=== PATIENT | male | born 1965 | race Caucasian/White ===

== ENCOUNTER 2017-08-23 02:04 | Emergency (ER) | payer MEDICARE, OTHER ==
[~2017-08-23] VITALS: Ht 175.3 cm; Wt 127.0 kg
[~2017-08-23 02:04] MED LIST: ALBU90OI61 INH; Albuterol17 G1 INH; Ativan0.5 MG PO; BENTYL10 MG PO; BRIM.15SO BOTHEYES; BUPR100 PO; BUPR150T2 PO; CEPH500 PO; CLON1 PO; CYCL10 PO; DIVA500EC PO; DOCU100 PO; DOXY100T53 PO; ERGO50000 PO; ESCI10 PO; ESZO3 PO; FURO20 PO; FURO40 PO; HYDR-86 PO; IBUP600 PO; LATA.005SO BOTHEYES; LEVSOD50 PO; LOPE2C PO; LOSA50 PO; Metoprolol-Hct1 EAC1 PO; Minipress1 MG PO; Monodox100 MG PO; NAPR550 PO; Norco 7.5-3251 EACH PO; OMEP20ER PO; POTA20PAC PO; POTCHL20ER PO; PROBIOTIC1 EAC1 PO; PROC10 PO; Pepcid40 MG PO; Percocet 5-3251 EACH PO; QUET300 PO; SYNTHROID25 MCG PO; Synthroid25 MCG PO; TIMO.5OPSO BOTHEYES; TOPI100 PO; Toprol Xl25 MG PO; VICODIN ES 7.51 EACH PO; VITAMIN D350000 UNIT PO; ZALE10 PO; [UNRECOGNIZED DRUG - REMARK]
[2017-08-23] MEDS ORDERED: Xalatan2.5 ML (02:14)
[2017-08-23] MEDS ORDERED: ALBU90OI61 INH (02:14)
[2017-08-23] MEDS ORDERED: LISI20 PO (02:15)
[2017-08-23] MEDS ORDERED: Combigan Eye Dro5 ML (02:15)
[2017-08-23 04:13] LABS: Influenza A Negative (NEGATIVE); Influenza B Negative (NEGATIVE)
[2017-08-23] MEDS ORDERED: Pseudoephedrine30 MG PO (04:26)
== END 2017-08-23 04:57 | disposition home or self-care (01) ==
LOC: ER 02:04
PROVIDERS: Emergency Medicine
DX: J06.9 Acute upper respiratory infection, unspecified (principal); Z88.0 Allergy status to penicillin; Z88.8 Allergy status to other drugs, medicaments and biological substances; Z79.899 Other long term (current) drug therapy; F32.9 Major depressive disorder, single episode, unspecified; Z87.891 Personal history of nicotine dependence
CPT/HCPCS: 71046; 87804; 94640; 96361; 96374; 99283; J1885; J7030

== ENCOUNTER 2019-06-27 11:46 | Observation (INO) | payer MEDICARE ==
[~2019-06-27] VITALS: Ht 175.3 cm; Wt 128.8 kg
[~2019-06-27 11:46] MED LIST changes: +Pseudoephedrine30 MG PO
[2019-06-27 12:10] LABS: Calcium, Ionized (POC) 1.15 mmol/L (1.10-1.46); Chloride (POC) 101 mmol/L (98-108); Creatinine (POC) 0.9 mg/dL (0.8-1.3); Glucose (ISTAT POC) 150 mg/dL (70-99); Potassium (POC) 3.1 mmol/L (3.5-5.5); Sodium (POC) 140 mmol/L (135-148); Total CO2 (POC) 28 mmol/L (21-32)
[2019-06-27 12:17] LABS: BASOPHILS ABSOLUTE AUTO 0.05 K/mm3 (0.00-0.23); BASOPHILS PERCENT AUTO 0 % (0-2); EOSINOPHILS ABSOLUTE AUTO 0.09 K/mm3 (0.00-0.68); EOSINOPHILS PERCENT AUTO 1 % (0-6); Hematocrit 45.8 % (37.0-53.0); Hemoglobin 15.4 g/dL (13.5-17.5); IMMATURE GRAN ABSOLUTE AUTO 0.07 K/mm3 (0.00-0.10); IMMATURE GRAN PERCENT AUTO 1 % (0-1); LYMPHOCYTES ABSOLUTE AUTO 4.86 K/mm3 (0.84-5.20); LYMPHOCYTES PERCENT AUTO 32 % (21-46); MONOCYTES ABSOLUTE AUTO 0.97 K/mm3 (0.16-1.47); MONOCYTES PERCENT AUTO 6 % (4-13); Mean Corpuscular HGB 28.7 pg (26.0-34.0); Mean Corpuscular HGB Conc 33.6 g/dL (31.5-36.5); Mean Corpuscular Volume 85 fL (80-100); NEUTROPHILS ABSOLUTE AUTO 9.41 K/mm3 (1.96-9.15); NEUTROPHILS PERCENT AUTO 61 % (41-73); Platelet Count 328 K/mm3 (150-400); RDW Coefficient Variation 12.7 % (11.7-14.2); RDW Standard Deviation 39.3 fL (35.1-46.3); Red Blood Cell Count 5.36 M/mm3 (4.30-5.90); White Blood Cell Count 15.45 K/mm3 (4.00-11.30)
[2019-06-27 12:33] LABS: Alanine Aminotransfer (ALT/SGP 23 U/L (12-78); Albumin, Blood 3.9 g/dL (3.4-5.0); Alk Phos 98 U/L (50-136); Anion Gap 9 mmol/L (6-16); Aspartate Aminotrans (AST/SGOT 21 U/L (12-37); Bilirubin, Total 0.5 mg/dL (0.1-1.0); Blood Urea Nitrogen 5 mg/dL (8-24); Bun/Creatinine Ratio 6.2 (12.0-20.0); CO2, Blood 25 mmol/L (21-32); Calcium, Blood 9.6 mg/dL (8.5-10.1); Chloride, Blood 106 mmol/L (98-108); Creatinine, Blood 0.81 mg/dL (0.60-1.20); Globulin, Blood 4.1 g/dL (2.2-4.0); Glomerular Filtration Rate >60 (60-); Glucose, Blood 137 mg/dL (70-99); Sodium, Blood 140 mmol/L (136-145); Troponin I <0.015 ng/mL (0.000-0.040)
[2019-06-27] MEDS ORDERED: Xalatan2.5 ML BOTHEYES (13:17)
[2019-06-27] MEDS ORDERED: Combigan Eye Dro5 ML BOTHEYES (13:18)
[2019-06-27] MEDS ORDERED: DORZOLAMIDE 2%10 ML BOTHEYES (13:18)
[2019-06-27] MEDS ORDERED: RHOPRESSA2.5 ML BOTHEYES (13:19)
[2019-06-27] MEDS ORDERED: ROPINIROLE HCL0.5 MG PO (13:55)
[2019-06-27] MEDS ORDERED: PROPRANOLOL ER PO (13:55)
[2019-06-27] MEDS ORDERED: Aspir 8181 MG PO (13:55)
[2019-06-27] MEDS ORDERED: AMLODIPINE BESY10 MG PO (13:55)
[2019-06-27] MEDS ORDERED: ZESTRIL40 M1 PO (13:55)
[2019-06-27] MEDS ORDERED: POTCHL20ER PO (13:56)
[2019-06-27] MEDS ORDERED: Flonase 0.05% N16 GM (13:57)
[2019-06-27 14:03] LABS: Acetaminophen, Random <2.0 ug/mL (10.0-30.0); Salicylate 1.8 mg/dL (2.8-20.0)
[2019-06-27 14:17] LABS: Magnesium, Blood 1.6 mg/dL (1.6-2.4)
[2019-06-27 15:38] LABS: U Amphetamine Screen Not Detected; U Barbituate Screen Not Detected; U Benzodiazapine Screen Not Detected; U Buprenorphine Screen Not Detected; U Cannabinoids Screen DETECTED; U Cocaine Screen Not Detected; U Methadone Screen Not Detected; U Methamphetamine Screen Not Detected; U Opiates Screen DETECTED; U Oxycodone Screen Not Detected; U Phencyclidine Screen Not Detected; U Propoxyphene Screen Not Detected
--- NOTE | 2019-06-27 15:52 | NUR ---
REPORT RECIEVED FROM ED RN. PER REPORT PT TO BE ADMITTED TO MEDICAL FLOOR FOR OBSERVATION. PT ADMITTED WITH CHEST PAIN, NEGATIVE TROPONIN HTN. PAIN MEDS GIVEN IN THE ED. PER REPORT PT STABLE ALERT, ORIENTED AND INDEPENDENT.
--- NOTE | 2019-06-27 18:45 | NUR ---
SHIFT SUMMARY- PT ALERT AND ORIENTED ADMITTED THROUGH THE ED. WHEN PT ARRIVED HE GOT UP TO GO STRAIGHT TO THE BATHROOM. AFTER RETURNING TO THE BED PT C/O 9/10 CHEST PAIN BURNING PRESSURE WITH A STABBING PAIN GOING "THROUGH TO HIS BACK" PT STATES SHARP PAIN MORE EVIDENT WITH A DEEP BREATH. TROPONINS NEGATIVE, BP AND HR ELEVATED, TELE SHOWS NSR WITH PVC'S. CALLED ABOUT PAIN MEDICINE TO MANAGE, PT HAS A NITRO PATCH IN PLACE ON THE LEFT CHEST. PT DENIES SOB AT TIME OF ADMIT. RECIEVED ORDER FOR IV FENTANYL HOWEVER DISCOVERED PT HAD IV TORADOL NOT PO TRAMADOL ORDERED, CALLED DR BAILEY AND FENTANYL DC'D. TORADOL GIVEMN.
[2019-06-27 20:02] LABS: Source, Urine Clean Catch
[2019-06-27 20:08] LABS: Appearance, Urine Clear (Clear); Bilirubin, Urine Neg (Neg); Blood, Urine Neg (Neg); Color, Urine Yellow (P-Yellow); Glucose Qualitative, Urine Neg (Neg); Ketones, Urine Neg (Neg); Leukocyte Esterase, Urine Neg (Neg); Nitrite, Urine Neg (Neg); Protein, Urine Neg (Neg); Specific Gravity, Urine 1.015 (1.003-1.022); Urobilinogen, Urine NORM (Normal)
[2019-06-27 20:23] LABS: U Amphetamine Screen Not Detected; U Barbituate Screen Not Detected; U Benzodiazapine Screen Not Detected; U Buprenorphine Screen Not Detected; U Cannabinoids Screen DETECTED; U Cocaine Screen Not Detected; U Methadone Screen Not Detected; U Methamphetamine Screen Not Detected; U Opiates Screen DETECTED; U Oxycodone Screen Not Detected; U Phencyclidine Screen Not Detected; U Propoxyphene Screen Not Detected
[2019-06-28 00:34] LABS: BASOPHILS ABSOLUTE AUTO 0.03 K/mm3 (0.00-0.23); BASOPHILS PERCENT AUTO 0 % (0-2); EOSINOPHILS ABSOLUTE AUTO 0.08 K/mm3 (0.00-0.68); EOSINOPHILS PERCENT AUTO 1 % (0-6); Hematocrit 39.7 % (37.0-53.0); Hemoglobin 13.3 g/dL (13.5-17.5); IMMATURE GRAN ABSOLUTE AUTO 0.03 K/mm3 (0.00-0.10); IMMATURE GRAN PERCENT AUTO 0 % (0-1); LYMPHOCYTES ABSOLUTE AUTO 2.29 K/mm3 (0.84-5.20); LYMPHOCYTES PERCENT AUTO 26 % (21-46); MONOCYTES ABSOLUTE AUTO 0.44 K/mm3 (0.16-1.47); MONOCYTES PERCENT AUTO 5 % (4-13); Mean Corpuscular HGB 28.5 pg (26.0-34.0); Mean Corpuscular HGB Conc 33.5 g/dL (31.5-36.5); Mean Corpuscular Volume 85 fL (80-100); Mean Platelet Volume 9.9 fL (9.1-12.4); NEUTROPHILS ABSOLUTE AUTO 5.82 K/mm3 (1.96-9.15); NEUTROPHILS PERCENT AUTO 67 % (41-73); Platelet Count 227 K/mm3 (150-400); RDW Coefficient Variation 12.9 % (11.7-14.2); RDW Standard Deviation 40.2 fL (35.1-46.3); Red Blood Cell Count 4.67 M/mm3 (4.30-5.90); White Blood Cell Count 8.69 K/mm3 (4.00-11.30)
[2019-06-28 00:52] LABS: Alanine Aminotransfer (ALT/SGP 18 U/L (12-78); Albumin, Blood 3.3 g/dL (3.4-5.0); Alk Phos 76 U/L (50-136); Anion Gap 7 mmol/L (6-16); Aspartate Aminotrans (AST/SGOT 18 U/L (12-37); Bilirubin, Total 0.6 mg/dL (0.1-1.0); Blood Urea Nitrogen 5 mg/dL (8-24); Bun/Creatinine Ratio 6.2 (12.0-20.0); CO2, Blood 26 mmol/L (21-32); Calcium, Blood 8.5 mg/dL (8.5-10.1); Chloride, Blood 109 mmol/L (98-108); Creatinine, Blood 0.81 mg/dL (0.60-1.20); Globulin, Blood 3.3 g/dL (2.2-4.0); Glomerular Filtration Rate >60 (60-); Glucose, Blood 113 mg/dL (70-99); Potassium, Blood 4.1 mmol/L (3.5-5.5); Sodium, Blood 142 mmol/L (136-145); Total Protein, Blood 6.6 g/dL (6.4-8.2)
--- NOTE | 2019-06-28 06:20 | NUR ---
SHIFT SUMMARY: VSS. AFEB. A/OX4. MAKING NEEDS KNOWN. STATES NASAL CONGESTION KEPT HIM UP MUCH OF THE NIGHT AND IS CAUSING A MORNING HEADACHE. CONT WITH CHEST PAIN THROUGH THE NIGHT, STATES IT IS TOLERABLE AND IMPROVED SOME COMPARED TO TIME OF ADMIT. PAIN IS SUBSTERNAL AND IN THE RUQ OF ABDOMEN. NO LOOSE STOOLS TO COLLECT FOR CULTURE. BED LOW, CALL BUTTON IN REACH.
--- NOTE | 2019-06-28 08:30 | NUR ---
Nasal Congestion - Stool sample Pt c/o nasal congestion through the night and was not able to sleep very well. Pt also had not had a BM since yesterday, pt denies loose stools at this time. Discussed with Dr. Gama. Stool sample d/c.
--- NOTE | 2019-06-28 11:27 | NUR ---
Propranolol 120 mg ER Patient received 80 mg ER morning dose of Propranolol. Propranolol dose increased to 120 mg ER after given morning dose. Dr. Landrum notified of this and orders received to give 40 mg immediate release to make up the difference d/t unavailability of 40 mg ER Propranolol per [place] in Pharmacy.
--- NOTE | 2019-06-28 13:02 | NUR ---
Shift Summary A/Ox4, pt discharged to home, escorted by SURVEILLANCE SYSTEM MONITOR via w/c. Reviewed discharge papers and educational materials with patient. Pt was concerned with not having enough medications to last until he can establish a PCP with [facility] as he only had [address] Gama notified and received verbal orders to call in for 30 days refill on all meds. Due to Pharmacy hours at [facility], Propranolol was called in to [facility] ([place]); all other medications faxed and called in to [facility]. [facility] new patient packet provided to patient. Personal belongs sent home. No other questions.
--- NOTE | 2019-07-01 09:30 | NUR ---
LATE NOTE: THIS RN RECEIVED CALL FROM PT ASKING FOR REFILLS ON HIS BLOOD PRESSURE MEDICATIONS. PER DEWAYNE HEARN TO REFILL LISINOPRIL AND AMLODIPINE ORDERED ON DISCHARGE. 30 DAY SUPPLY CALLED TO [facility] WITH NO REFILLS. INSTRUCTED PT TO DISCUSS FURTHER REFILLS AT HIS NEW PCP APPT. THIS SUNDAY, .
== END 2019-06-28 13:00 | disposition home or self-care (01) ==
LOC: ER 11:46 → MEDS 11:47 → ENPENDDIS 06-28 11:10 → MEDS 06-28 13:00
PROVIDERS: Emergency Medicine; Nurse Practitioner Acute Care; ADMIT Internal Medicine
DX: R07.9 Chest pain, unspecified (principal); R65.10 Systemic inflammatory response syndrome (SIRS) of non-infectious origin without acute organ dysfunction; I10 Essential (primary) hypertension; F41.8 Other specified anxiety disorders; N40.0 Benign prostatic hyperplasia without lower urinary tract symptoms; E87.6 Hypokalemia; E66.01 Morbid (severe) obesity due to excess calories; G47.33 Obstructive sleep apnea (adult) (pediatric); Z88.0 Allergy status to penicillin; Z88.8 Allergy status to other drugs, medicaments and biological substances; Z79.82 Long term (current) use of aspirin; Z79.899 Other long term (current) drug therapy; Z66 Do not resuscitate; Z99.89 Dependence on other enabling machines and devices; Z87.891 Personal history of nicotine dependence; G43.909 Migraine, unspecified, not intractable, without status migrainosus; R73.03 Prediabetes; Z68.41 Body mass index [BMI] 40.0-44.9, adult
CPT/HCPCS: 36415; 51798; 71045; 71275; 74175; 80047; 80053; 81003; 83036; 83605; 83735; 83880; 84145; 84153; 84443; 84484; 85014; 85025; 86850; 86900; 86901; 87040; 90686; 93005; 93010; 93306; 94762; 96361; 96372; 96374-59; 96375; 96375-59; 96376; 99285-25; G0008; G0378; G0480; J1650; J1885; J2270; J2405; J7030; Q9967

== ENCOUNTER 2020-04-22 12:16 | Emergency (ER) | payer MEDICARE ==
[~2020-04-22] VITALS: Ht 177.8 cm; Wt 132.4 kg
[~2020-04-22 12:16] MED LIST changes: +AMLODIPINE BESY10 MG PO; +Aspir 8181 MG PO; +Combigan Eye Dro5 ML BOTHEYES; +DORZOLAMIDE 2%10 ML BOTHEYES; +Flonase 0.05% N16 GM; +PROPRANOLOL ER PO; +RHOPRESSA2.5 ML BOTHEYES; +ROPINIROLE HCL0.5 MG PO; +Xalatan2.5 ML BOTHEYES; +ZESTRIL40 M1 PO
[2020-04-22] MEDS ORDERED: PRED20 PO (14:15)
[2020-04-22] MEDS ORDERED: HYDR1TAB94 PO (14:15)
[2020-04-22] MEDS ORDERED: CYCL10 PO (14:15)
== END 2020-04-22 14:24 | disposition home or self-care (01) ==
LOC: ER 12:16
DX: M25.512 Pain in left shoulder (principal); F32.9 Major depressive disorder, single episode, unspecified; I10 Essential (primary) hypertension; Z88.0 Allergy status to penicillin; Z88.8 Allergy status to other drugs, medicaments and biological substances; Z79.82 Long term (current) use of aspirin; Z79.899 Other long term (current) drug therapy; Z87.891 Personal history of nicotine dependence
CPT/HCPCS: 73030; 99283-25

== ENCOUNTER 2020-04-26 21:32 | Inpatient (IN) | payer MEDICARE ==
[~2020-04-26] VITALS: Ht 175.3 cm; Wt 131.8 kg
[~2020-04-26 21:32] MED LIST changes: +HYDR1TAB94 PO; +PRED20 PO
[2020-04-26] MEDS ORDERED: METO25ER PO (22:10)
[2020-04-26] MEDS ORDERED: LISI20 PO (22:10)
[2020-04-26 22:23] LABS: BASOPHILS ABSOLUTE AUTO 0.05 K/mm3 (0.00-0.23); BASOPHILS PERCENT AUTO 0 % (0-2); EOSINOPHILS ABSOLUTE AUTO 0.01 K/mm3 (0.00-0.68); EOSINOPHILS PERCENT AUTO 0 % (0-6); Hematocrit 46.7 % (37.0-53.0); Hemoglobin 15.9 g/dL (13.5-17.5); IMMATURE GRAN ABSOLUTE AUTO 0.15 K/mm3 (0.00-0.10); IMMATURE GRAN PERCENT AUTO 1 % (0-1); LYMPHOCYTES ABSOLUTE AUTO 1.96 K/mm3 (0.84-5.20); LYMPHOCYTES PERCENT AUTO 12 % (21-46); MONOCYTES ABSOLUTE AUTO 0.74 K/mm3 (0.16-1.47); MONOCYTES PERCENT AUTO 5 % (4-13); Mean Corpuscular HGB 28.2 pg (26.0-34.0); Mean Corpuscular Volume 83 fL (80-100); Mean Platelet Volume 9.8 fL (9.1-12.4); NEUTROPHILS ABSOLUTE AUTO 12.97 K/mm3 (1.96-9.15); NEUTROPHILS PERCENT AUTO 82 % (41-73); Platelet Count 302 K/mm3 (150-400); RDW Standard Deviation 39.1 fL (35.1-46.3); Red Blood Cell Count 5.63 M/mm3 (4.30-5.90); White Blood Cell Count 15.88 K/mm3 (4.00-11.30)
[2020-04-26 22:58] LABS: Acetaminophen, Random <2.0 ug/mL (10.0-30.0); Alanine Aminotransfer (ALT/SGP 845 U/L (12-78); Albumin, Blood 3.4 g/dL (3.4-5.0); Alk Phos 107 U/L (50-136); Anion Gap 10 mmol/L (6-16); Aspartate Aminotrans (AST/SGOT 957 U/L (12-37); Bilirubin, Total 1.6 mg/dL (0.1-1.0); Blood Urea Nitrogen 12 mg/dL (8-24); Bun/Creatinine Ratio 17.4 (12.0-20.0); CO2, Blood 22 mmol/L (21-32); Calcium, Blood 8.9 mg/dL (8.5-10.1); Chloride, Blood 104 mmol/L (98-108); Creatinine, Blood 0.69 mg/dL (0.60-1.20); Ethanol (Alcohol), Blood, Med <3 mg/dL; Globulin, Blood 3.4 g/dL (2.2-4.0); Glomerular Filtration Rate >60 (60-); Glucose, Blood 165 mg/dL (70-99); Potassium, Blood 3.1 mmol/L (3.5-5.5); Salicylate <1.7 mg/dL (2.8-20.0); Sodium, Blood 136 mmol/L (136-145); Thyroxine (T4) 14.4 ug/dL (4.5-12.1); Total Protein, Blood 6.8 g/dL (6.4-8.2); Troponin I <0.015 ng/mL (0.000-0.040)
[2020-04-27 00:17] LABS: International Normalized Ratio 1.37; Prothrombin Time Results 14.4 Sec (9.7-11.5)
[2020-04-27 05:38] LABS: Appearance, Urine Clear (Clear); Bilirubin, Urine Neg (Neg); Blood, Urine 1+ (Neg); Color, Urine Yellow (P-Yellow); Glucose Qualitative, Urine 3+ (Neg); Ketones, Urine 4+ (Neg); Leukocyte Esterase, Urine Neg (Neg); Nitrite, Urine Neg (Neg); Protein, Urine 2+ (Neg); Specific Gravity, Urine 1.025 (1.003-1.022); Urobilinogen, Urine NORM (Normal)
[2020-04-27 05:49] LABS: Bacteria Rare /hpf; Granular Casts 0-2 /lpf (0); Red Blood Cells, Urine 0-2 /hpf (0-2); Squamous Epithelial Cells Not Seen /hpf (Few); White Blood Cells, Urine 0-2 /hpf (0-5)
[2020-04-27 05:50] LABS: U Amphetamine Screen Not Detected; U Barbituate Screen Not Detected; U Benzodiazapine Screen Not Detected; U Buprenorphine Screen Not Detected; U Cannabinoids Screen DETECTED; U Cocaine Screen Not Detected; U Methadone Screen Not Detected; U Methamphetamine Screen Not Detected; U Opiates Screen DETECTED; U Oxycodone Screen Not Detected; U Phencyclidine Screen Not Detected; U Propoxyphene Screen Not Detected
[2020-04-27 05:59] LABS: BASOPHILS ABSOLUTE AUTO 0.03 K/mm3 (0.00-0.23); BASOPHILS PERCENT AUTO 0 % (0-2); EOSINOPHILS PERCENT AUTO 0 % (0-6); Hematocrit 45.6 % (37.0-53.0); Hemoglobin 15.8 g/dL (13.5-17.5); IMMATURE GRAN ABSOLUTE AUTO 0.18 K/mm3 (0.00-0.10); IMMATURE GRAN PERCENT AUTO 1 % (0-1); LYMPHOCYTES ABSOLUTE AUTO 1.13 K/mm3 (0.84-5.20); LYMPHOCYTES PERCENT AUTO 6 % (21-46); MONOCYTES ABSOLUTE AUTO 0.73 K/mm3 (0.16-1.47); MONOCYTES PERCENT AUTO 4 % (4-13); Mean Corpuscular HGB Conc 34.6 g/dL (31.5-36.5); Mean Corpuscular Volume 84 fL (80-100); Mean Platelet Volume 9.7 fL (9.1-12.4); NEUTROPHILS PERCENT AUTO 89 % (41-73); Platelet Count 257 K/mm3 (150-400); RDW Coefficient Variation 13.2 % (11.7-14.2); RDW Standard Deviation 40.1 fL (35.1-46.3); Red Blood Cell Count 5.44 M/mm3 (4.30-5.90); White Blood Cell Count 18.57 K/mm3 (4.00-11.30)
--- NOTE | 2020-04-27 06:06 | NUR ---
SUMMARY PT ARRIVED TO UNIT AT 0130, RECIEVED REPORT FROM LUCERO MCINTYRE. UPON ARRIVAL PT WAS VOMITING AND COMPLAINING OF ABDOMINAL AND CHEST PAIN. EKG WAS DONE AND MEDICATED PER EMAR. PT STATES HE NO LONGER WISHES TO AND DOES NOT WANT TO HURT HIMSELF. HE IS COOPERATIVE WITH CARE AND PLEASANT. PT COULD NOT URINATE, BLADDER SCAN WAS DONE, AND STRAIGHT CATH WAS DONE. HE IS SINUS TACH AND 02 IN THE UPPER 90s. SITTER IN ROOM, SAFETY CHECKS DONE.
[2020-04-27 06:32] LABS: Alanine Aminotransfer (ALT/SGP 1294 U/L (12-78); Albumin/Globulin Ratio 0.9 (0.8-1.8); Alk Phos 78 U/L (50-136); Anion Gap 12 mmol/L (6-16); Aspartate Aminotrans (AST/SGOT 1370 U/L (12-37); Bilirubin, Total 1.7 mg/dL (0.1-1.0); Blood Urea Nitrogen 11 mg/dL (8-24); Bun/Creatinine Ratio 15.9 (12.0-20.0); CO2, Blood 24 mmol/L (21-32); Calcium, Blood 8.4 mg/dL (8.5-10.1); Chloride, Blood 103 mmol/L (98-108); Creatinine, Blood 0.69 mg/dL (0.60-1.20); Globulin, Blood 3.5 g/dL (2.2-4.0); Glomerular Filtration Rate >60 (60-); Glucose, Blood 171 mg/dL (70-99); Potassium, Blood 3.4 mmol/L (3.5-5.5); Sodium, Blood 139 mmol/L (136-145); Total Protein, Blood 6.5 g/dL (6.4-8.2)
--- NOTE | 2020-04-27 07:34 | NUR ---
ASSUMED PATIENT CARE. PATIENT RESTING COMFORTABLY IN BED, CONVERSING WITH NURSING STAFF. SITTER IN ROOM, NO SIGNS OF ACUTE DISTRESS, WCTM.
--- NOTE | 2020-04-27 10:55 | NUR ---
Suicide Safety Plan compete. Pt engaged fully in planning. 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 Investgator, Vinita, from [facility] entered room during interview. Pt asked about past counselors with her, and was happy to hear they are still with [facility]. Stressores--pt was fearful of loosing his social security benefits. He has paperwork that is due 05-17-20, and "is not ggod with paperwork". He had focused on this, and was afraid he would be homeless again, and lose his apartment. He said "it took me along time to get my apartment and I dont want to lose it". Vinita and Chancery Clerk apprised that patient will need help with benefits re-application. Pt hospitalized and previous OD on aspirin 5 years ago. Pt reports he drank wine, and took the prescribed dose of pain meds for his back; and he :lost his inhibitions" and took the Tylenol OD. He reports his estranged son of 10 years called him near time of OD. Pt had already decided to call police for help. Pt reports his OD "was stupid" and he is glad he is alive. Pt walks with cane at times due to "lower back fusion", and had recent fall that damaged his rotator cuff. He has PCP appt this Sunday at [facility], and has been receiving his high BP pills from fleet service clerk -after a recent visit to [facility] for heart issues. Pt looks forward to returning to his apartmment, following up on rotator cuff and possible surgery. Appontments to be scheduled at [facility]/ [place] by Chancery Clerk Jazlyn Kee M.Ed., [facility]
[2020-04-27 13:43] LABS: International Normalized Ratio 1.48; Prothrombin Time Results 15.5 Sec (9.7-11.5)
[2020-04-27 14:09] LABS: Acetaminophen, Random <2.0 ug/mL (10.0-30.0)
[2020-04-27 14:14] LABS: Alanine Aminotransfer (ALT/SGP 1732 U/L (12-78); Albumin, Blood 2.8 g/dL (3.4-5.0); Albumin/Globulin Ratio 0.8 (0.8-1.8); Alk Phos 88 U/L (50-136); Anion Gap 11 mmol/L (6-16); Aspartate Aminotrans (AST/SGOT 1604 U/L (12-37); Bilirubin, Total 1.7 mg/dL (0.1-1.0); Blood Urea Nitrogen 8 mg/dL (8-24); Bun/Creatinine Ratio 12.3 (12.0-20.0); CO2, Blood 23 mmol/L (21-32); Calcium, Blood 8.4 mg/dL (8.5-10.1); Chloride, Blood 105 mmol/L (98-108); Creatinine, Blood 0.65 mg/dL (0.60-1.20); Globulin, Blood 3.5 g/dL (2.2-4.0); Glomerular Filtration Rate >60 (60-); Glucose, Blood 165 mg/dL (70-99); Sodium, Blood 139 mmol/L (136-145); Total Protein, Blood 6.3 g/dL (6.4-8.2)
--- NOTE | 2020-04-27 18:24 | NUR ---
NO ACUTE EVENTS THIS SHIFT. VSS, PATIENT COMPLAINS OF 10/10 ABDOMINAL PAIN T/O SHIFT, HOWEVER IS ABLE TO NAP AND HAS FLACC OF 0 POST ADMIN OF FENTANYL NOW AVAIL. Q2 PRN. PATIENT DENIED SI THIS SHIFT, DR. GARCIA SAW PATIENT AND DISCONTINUED 2 MD HOLD AND DC'd ALL SUICIDE PRECAUTIONS. PLAN IS TO CONTINUE MANAGEMENT OF LIVER INJURY, AST/ALT CONTINUE TO TREND UPWARD. PATIENT ABLE TO VOID SECOND HALF OF SHIFT.
[2020-04-27 19:39] LABS: International Normalized Ratio 1.5; Prothrombin Time Results 15.7 Sec (9.7-11.5)
[2020-04-27 19:48] LABS: Albumin, Blood 2.6 g/dL (3.4-5.0); Albumin/Globulin Ratio 0.8 (0.8-1.8); Alk Phos 84 U/L (50-136); Anion Gap 7 mmol/L (6-16); Bilirubin, Total 1.5 mg/dL (0.1-1.0); Blood Urea Nitrogen 7 mg/dL (8-24); Bun/Creatinine Ratio 8.7 (12.0-20.0); CO2, Blood 28 mmol/L (21-32); Calcium, Blood 8.6 mg/dL (8.5-10.1); Chloride, Blood 107 mmol/L (98-108); Creatinine, Blood 0.81 mg/dL (0.60-1.20); Globulin, Blood 3.2 g/dL (2.2-4.0); Glomerular Filtration Rate >60 (60-); Glucose, Blood 178 mg/dL (70-99); Potassium, Blood 3.5 mmol/L (3.5-5.5); Sodium, Blood 142 mmol/L (136-145); Total Protein, Blood 5.8 g/dL (6.4-8.2)
[2020-04-27 20:05] LABS: Alanine Aminotransfer (ALT/SGP 1905 U/L (12-78); Aspartate Aminotrans (AST/SGOT 1383 U/L (12-37)
[2020-04-28 01:37] LABS: International Normalized Ratio 1.44; Prothrombin Time Results 15.1 Sec (9.7-11.5)
[2020-04-28 01:48] LABS: Alanine Aminotransfer (ALT/SGP 1747 U/L (12-78); Albumin, Blood 2.5 g/dL (3.4-5.0); Albumin/Globulin Ratio 0.8 (0.8-1.8); Alk Phos 81 U/L (50-136); Anion Gap 5 mmol/L (6-16); Aspartate Aminotrans (AST/SGOT 984 U/L (12-37); Bilirubin, Total 1.5 mg/dL (0.1-1.0); Blood Urea Nitrogen 6 mg/dL (8-24); CO2, Blood 29 mmol/L (21-32); Calcium, Blood 8.3 mg/dL (8.5-10.1); Chloride, Blood 107 mmol/L (98-108); Creatinine, Blood 0.75 mg/dL (0.60-1.20); Globulin, Blood 3.2 g/dL (2.2-4.0); Glomerular Filtration Rate >60 (60-); Glucose, Blood 121 mg/dL (70-99); Potassium, Blood 3.3 mmol/L (3.5-5.5); Sodium, Blood 141 mmol/L (136-145); Total Protein, Blood 5.7 g/dL (6.4-8.2)
--- NOTE | 2020-04-28 04:40 | NUR ---
SHIFT SUMMARY [facility]- UPDATE GIVEN, PT CONTINUES TO C/O ABD PAIN 04/17 & NAUSEA, MEDICATED PER SEP FOR NAUSEA & PAIN, BLADDER SCAN @ 2044 WAS 786ML- PT REPORTED "PRESSURE" UNABLE TO VOID, CALL PLACED TO [facility] ([place]) REC ORDER FOR STRAIGHT CATH FOR GREATER THAN 400 MLS, PT THEN VOIDED 400MLS AT THIS TIME. SLEPT T/O THE NIGHT WAKING TO REQUEST PAIN/NAUSEA MEDS THEN EASILY RETURNING TO SLEEP, 5L 02 PLACED ON PT @ 0330 BY RT FOR LOW O2 SATS- DROPPING LOW 58%. PT SLEEPING AT THIS TIME, CALL LIGHT IN REACH, WILL CONT TO MONITOR UNTIL REPORT GIVEN TO DAY RN.
[2020-04-28 08:02] LABS: International Normalized Ratio 1.39; Prothrombin Time Results 14.6 Sec (9.7-11.5)
[2020-04-28 08:19] LABS: Alanine Aminotransfer (ALT/SGP 1600 U/L (12-78); Albumin, Blood 2.5 g/dL (3.4-5.0); Albumin/Globulin Ratio 0.8 (0.8-1.8); Alk Phos 78 U/L (50-136); Anion Gap 6 mmol/L (6-16); Aspartate Aminotrans (AST/SGOT 742 U/L (12-37); Bilirubin, Total 1.7 mg/dL (0.1-1.0); Blood Urea Nitrogen 6 mg/dL (8-24); CO2, Blood 28 mmol/L (21-32); Calcium, Blood 8.2 mg/dL (8.5-10.1); Chloride, Blood 106 mmol/L (98-108); Creatinine, Blood 0.75 mg/dL (0.60-1.20); Globulin, Blood 3.1 g/dL (2.2-4.0); Glomerular Filtration Rate >60 (60-); Glucose, Blood 181 mg/dL (70-99); Potassium, Blood 3.1 mmol/L (3.5-5.5); Sodium, Blood 140 mmol/L (136-145); Total Protein, Blood 5.6 g/dL (6.4-8.2)
--- NOTE | 2020-04-28 18:07 | NUR ---
SHIFT NOTE PT HAS C/O OF 10 PAIN AND NAUSEA T/O THE DAY, PT HAS BEEN MEDICATED WITH FENTANYL AND REGLAN FOR NAUSEA AND PAIN. PT REMAINS ON ACEDOTE IVP. DENIES THOUGHTS OF HARM. ABD SOFT AND REPORTS VERY TENDER TO LIGHT PALPATION T/O ABD. BT HYPERACTIVE. ABD IS ROUND AND OBESE. NO VOMITTING. DR LINDSAY HAS BEEN IN TO SEE PT TODAY. OTHERWISE IS RESTING WELL IN BED
[2020-04-28 22:29] LABS: International Normalized Ratio 1.25; Prothrombin Time Results 13.2 Sec (9.7-11.5)
[2020-04-28 22:41] LABS: Albumin, Blood 2.3 g/dL (3.4-5.0); Albumin/Globulin Ratio 0.8 (0.8-1.8); Bilirubin, Direct 0.6 mg/dL (0.0-0.3); Bilirubin, Indirect 0.4 mg/dL (0.1-0.7); Globulin, Blood 2.9 g/dL (2.2-4.0); Total Protein, Blood 5.2 g/dL (6.4-8.2)
[2020-04-29 05:28] LABS: International Normalized Ratio 1.19; Prothrombin Time Results 12.6 Sec (9.7-11.5)
--- NOTE | 2020-04-29 10:41 | NUR ---
MORNING MEDICATION ADMIN IS PART OF DOWN TIME PAPER CHARTING, PLEASE SEE DOWN TIME DOCUMENTATION
[2020-04-29 11:29] LABS: Alanine Aminotransfer (ALT/SGP 1013 U/L (12-78); Albumin, Blood 2.3 g/dL (3.4-5.0); Albumin/Globulin Ratio 0.8 (0.8-1.8); Alk Phos 66 U/L (50-136); Anion Gap 5 mmol/L (6-16); Aspartate Aminotrans (AST/SGOT 267 U/L (12-37); Bilirubin, Total 1.3 mg/dL (0.1-1.0); Blood Urea Nitrogen 4 mg/dL (8-24); Bun/Creatinine Ratio 5.4 (12.0-20.0); CO2, Blood 30 mmol/L (21-32); Chloride, Blood 108 mmol/L (98-108); Creatinine, Blood 0.73 mg/dL (0.60-1.20); Globulin, Blood 2.8 g/dL (2.2-4.0); Glomerular Filtration Rate >60 (60-); Glucose, Blood 94 mg/dL (70-99); Potassium, Blood 3.4 mmol/L (3.5-5.5); Sodium, Blood 143 mmol/L (136-145); Total Protein, Blood 5.1 g/dL (6.4-8.2)
--- NOTE | 2020-04-29 18:14 | NUR ---
SHIFT NOTE PT WITH NO ACUTE CHANGES THIS SHIFT. PT HAS REQUIRED LESS PAIN MEDCIATIONS T/O THE DAY. ABD REMAINS DISTENDED. REPORTS SOME NAUSEA TODAY, WAS TREATED X2 TODAY ALONG. A/O X4. DENIES CP OR SOB. NS INFUSING.
--- NOTE | 2020-04-29 20:21 | NUR ---
CHEST PAIN PATIENT STARTED COMPLAINING OF 9/10 CHEST PAIN. EKG OBTAINED, NO MAJOR CHANGES NOTED ON EKG. DR DURAN NOTIFIED OF CHEST PAIN AND EKG RESULTS. ORDERS RECEIVED AT THIS TIME. WILL CONTINUE TO MONITOR.
--- NOTE | 2020-04-29 23:10 | NUR ---
TRANSFER NOTE HANDOFF RECEIVED FROM PROVIDER SCRIBEMIGUELINA YEE. PT ARRIVED VIA GURNEY. PERSONAL POSSESSIONS WITH PT. IV FLUIDS RESTARTED. PT ORIENTED TO UNIT. CALL BUTTON WITHIN REACH
--- NOTE | 2020-04-29 23:10 | NUR ---
PT TRANSFER PT HANDOFF REPORT GIVEN TO Ginny GUERRA RN. PT TRANSFERRED VIA HOSPITAL BED TO ROOM 302 WITH MIGUELINA FOWLER AND WESLEY ZARATE.
--- NOTE | 2020-04-30 04:18 | NUR ---
SHIFT SUMMARY ADMITTED FOR TYLENOL OVERDOSE. FULL CODE. TRANSFERED FROM PCU TO MEDICAL FLOOR THIS SHIFT. PLAN IS FOR DC TODAY IF LABS SHOW CONTINUED IMPROVEMENT. MEDICATED THIS SHIFT WITH IV PAIN AND NAUSEA MEDICATION. [place] IS CONSULT. HE STATES HE HAS NOT BEEN OUT OF BED SINCE ADMIT. NS IS INFUSING @ 100 ML/HR.
[2020-04-30 09:03] LABS: BASOPHILS ABSOLUTE AUTO 0.03 K/mm3 (0.00-0.23); BASOPHILS PERCENT AUTO 0 % (0-2); EOSINOPHILS ABSOLUTE AUTO 0.36 K/mm3 (0.00-0.68); EOSINOPHILS PERCENT AUTO 4 % (0-6); Hematocrit 43.1 % (37.0-53.0); Hemoglobin 14.5 g/dL (13.5-17.5); IMMATURE GRAN ABSOLUTE AUTO 0.18 K/mm3 (0.00-0.10); IMMATURE GRAN PERCENT AUTO 2 % (0-1); LYMPHOCYTES ABSOLUTE AUTO 2.32 K/mm3 (0.84-5.20); LYMPHOCYTES PERCENT AUTO 27 % (21-46); MONOCYTES ABSOLUTE AUTO 0.55 K/mm3 (0.16-1.47); MONOCYTES PERCENT AUTO 6 % (4-13); Mean Corpuscular HGB Conc 33.6 g/dL (31.5-36.5); Mean Corpuscular Volume 86 fL (80-100); Mean Platelet Volume 10.2 fL (9.1-12.4); NEUTROPHILS ABSOLUTE AUTO 5.18 K/mm3 (1.96-9.15); NEUTROPHILS PERCENT AUTO 60 % (41-73); Platelet Count 205 K/mm3 (150-400); RDW Coefficient Variation 13.7 % (11.7-14.2); RDW Standard Deviation 42.8 fL (35.1-46.3); White Blood Cell Count 8.62 K/mm3 (4.00-11.30)
[2020-04-30 09:08] LABS: Alanine Aminotransfer (ALT/SGP 779 U/L (12-78); Albumin, Blood 2.8 g/dL (3.4-5.0); Albumin/Globulin Ratio 0.8 (0.8-1.8); Alk Phos 76 U/L (50-136); Anion Gap 5 mmol/L (6-16); Aspartate Aminotrans (AST/SGOT 135 U/L (12-37); Blood Urea Nitrogen 6 mg/dL (8-24); Bun/Creatinine Ratio 8.7 (12.0-20.0); CO2, Blood 27 mmol/L (21-32); Calcium, Blood 8.8 mg/dL (8.5-10.1); Chloride, Blood 108 mmol/L (98-108); Creatinine, Blood 0.69 mg/dL (0.60-1.20); Globulin, Blood 3.5 g/dL (2.2-4.0); Glomerular Filtration Rate >60 (60-); Glucose, Blood 84 mg/dL (70-99); Potassium, Blood 3.4 mmol/L (3.5-5.5); Sodium, Blood 140 mmol/L (136-145); Total Protein, Blood 6.3 g/dL (6.4-8.2)
--- NOTE | 2020-04-30 19:17 | NUR ---
SHIFT SUMMARY AWILDA GOT UP FOR THE FIRST TIME IN SEVERAL DAYS TODAY. GOT VERY DIZZY INTERMITTENTLY, NEGATIVE FOR ORTHOSTATIC HYPOTENSION. PT THOROUGHLY EDUCATED ON GETTING UP SLOWLY, SITTING AT EDGE OF BED FOR A FEW MINUTES, STANDING FOR A FEW MINUTES. COMPLAINED OF PAIN AND NAUSEA WHICH IMPROVED WITH SWITCHING TO PO PAIN MEDS. WEANED TO RA. TELE SHOWED NSR. CONTINENT IN URINAL. TOOK MEDS PRESCRIBED. LOOKING FORWARD TO GOING HOME TOMORROW
--- NOTE | 2020-05-01 05:25 | NUR ---
SHIFT SUMMARY NO ACUTE CHANGES THIS SHIFT. PT IS IND IN ROOM, A&O X4. MEDICATED FOR PAIN X1. MEDICATED FOR NAUSEA X2. SLEPT WELL T/O SHIFT. PT STATES WORRY OF A LUMP ON HIS MID ABDOMEN, STATES THAT IT IS TENDER. PT IS LAYING IN BED WITH EYES CLOSED, EVEN AND UNLABORED RESPIRATIONS. BED IS IN LOWERED POSITION, CALL LIGHT AND PERSONAL ITEMS WITHIN REACH. NO APPARENT NEEDS OR DISTRESS AT THIS TIME, WILL CONTINUE TO MONITOR UNTIL REPORT GIVEN TO DAY RN.
[2020-05-01] MEDS ORDERED: DOCU100 PO (10:59)
[2020-05-01] MEDS ORDERED: ONDA4ODT MM (11:00)
[2020-05-01] MEDS ORDERED: PANT40 PO (11:00)
[2020-05-01] MEDS ORDERED: POTCHL20ER PO (11:02)
--- NOTE | 2020-05-01 12:00 | NUR ---
DISCHARGE SUMMARY PT DISCHARGED HOME. PT LEFT ROOM VIA WHEELCHAIR WITH DIRECTOR OF DIVERSITY AND INCLUSION ESCORT AT 1155. IV DC'D AND BELONGINGS RETURNED. PT EDUCATED ON MEDICATIONS WHICH TO NOT TAKE ANYMORE, NEW MEDICATIONS, ACETAMINOPHEN OD AND JAUNDICE. MEDICATIONS PICKED UP FROM [facility] AT 1133 AND GIVEN TO PATIENT AT 1134. PT STATES THAT HE HAS AN APPOINTMENT WITH [facility] AT 11;30 ON SUNDAY AND PCP ON 05/07 AT 1510. PT AGREES TO FOLLOW UP WITH BOTH. PT AGREES NOT TO TAKE TYLENOL ANYMORE.
== END 2020-05-01 11:55 | disposition home or self-care (01) | DRG 918 ==
LOC: ER 21:32 → PCU 23:57 → MEDS 04-29 22:59
PROVIDERS: Emergency Medicine; Family Medicine; Internal Medicine; Nurse Practitioner Acute Care; ADMIT Family Medicine
PROC: 3E0234Z Introduction of Serum, Toxoid and Vaccine into Muscle, Percutaneous Approach (ICD-10-PCS; principal; 2020-04-27)
DX: T39.1X2A Poisoning by 4-Aminophenol derivatives, intentional self-harm, initial encounter (principal); Z68.41 Body mass index [BMI] 40.0-44.9, adult; T44.7X2A Poisoning by beta-adrenoreceptor antagonists, intentional self-harm, initial encounter; T48.1X2A Poisoning by skeletal muscle relaxants [neuromuscular blocking agents], intentional self-harm, initial encounter; Z23 Encounter for immunization; E87.6 Hypokalemia; I10 Essential (primary) hypertension; F32.9 Major depressive disorder, single episode, unspecified; K21.9 Gastro-esophageal reflux disease without esophagitis; F41.9 Anxiety disorder, unspecified; G89.29 Other chronic pain; M54.9 Dorsalgia, unspecified; M54.2 Cervicalgia; G47.30 Sleep apnea, unspecified; E66.9 Obesity, unspecified; Z88.0 Allergy status to penicillin; Z87.891 Personal history of nicotine dependence
CPT/HCPCS: 36415; 51701; 80053; 80076; 81001; 82947; 83690; 84436; 84443; 84484; 85025; 85610; 93005; 93010; 94762; 96365; 96366; 96375; 96376; 97161; 97530; 99285-25; A9270; A9270-GY; G0008; G0480; J0132; J2405; J2550; J2765; J3010; J7030; J7060; J7070; Q2038

== ENCOUNTER 2024-05-17 14:41 | Emergency (ER) | payer OTHER ==
[~2024-05-17] VITALS: Ht 175.3 cm; Wt 120.2 kg
[~2024-05-17 14:41] MED LIST changes: +LISI20 PO; +METO25ER PO; +ONDA4ODT MM; +PANT40 PO
[2024-05-17 15:22] VITALS: BP 143/95
[2024-05-17 15:40] LABS: BASOPHILS ABSOLUTE AUTO 0.07 K/mm3 (0.00-0.23); BASOPHILS PERCENT AUTO 1 % (0-2); EOSINOPHILS ABSOLUTE AUTO 0.12 K/mm3 (0.00-0.68); EOSINOPHILS PERCENT AUTO 1 % (0-6); Hematocrit 46.2 % (37.0-53.0); Hemoglobin 16.5 g/dL (13.5-17.5); IMMATURE GRAN ABSOLUTE AUTO 0.09 K/mm3 (0.00-0.10); IMMATURE GRAN PERCENT AUTO 1 % (0-1); LYMPHOCYTES ABSOLUTE AUTO 3.92 K/mm3 (0.84-5.20); LYMPHOCYTES PERCENT AUTO 26 % (21-46); MONOCYTES ABSOLUTE AUTO 0.55 K/mm3 (0.16-1.47); MONOCYTES PERCENT AUTO 4 % (4-13); Mean Corpuscular HGB 28.3 pg (26.0-34.0); Mean Corpuscular HGB Conc 35.7 g/dL (31.5-36.5); Mean Corpuscular Volume 79 fL (80-100); Mean Platelet Volume 9.9 fL (9.1-12.4); NEUTROPHILS ABSOLUTE AUTO 10.13 K/mm3 (1.96-9.15); NEUTROPHILS PERCENT AUTO 68 % (41-73); Platelet Count 301 K/mm3 (150-400); RDW Coefficient Variation 12.8 % (11.7-14.2); RDW Standard Deviation 35.9 fL (35.1-46.3); Red Blood Cell Count 5.84 M/mm3 (4.30-5.90); White Blood Cell Count 14.88 K/mm3 (4.00-11.30)
[2024-05-17 15:51] LABS: Bicarbonate Venous 28.4 mmol/L (24.0-30.0); PCO2 Venous 40.6 mmHg (38-42); pH Blood Venous 7.46 (7.34-7.37)
[2024-05-17 15:55] LABS: Source, Urine Clean Catch
[2024-05-17 16:00] LABS: Albumin, Blood 3.6 g/dL (3.4-5.0); Albumin/Globulin Ratio 0.9 (0.8-1.8); Bilirubin, Total 0.5 mg/dL (0.1-1.0); Bun/Creatinine Ratio 11.5 (12.0-20.0); Calcium, Blood 10.3 mg/dL (8.5-10.1); Creatinine, Blood 0.87 mg/dL (0.60-1.20); Globulin, Blood 3.9 g/dL (2.2-4.0); Potassium, Blood 3.4 mmol/L (3.5-5.5); Total Protein, Blood 7.5 g/dL (6.4-8.2)
[2024-05-17 16:15] LABS: Appearance, Urine Clear (Clear); Bilirubin, Urine Neg (Neg); Blood, Urine Neg (Neg); Glucose Qualitative, Urine 4+ (Neg); Ketones, Urine Neg (Neg); Leukocyte Esterase, Urine Neg (Neg); Nitrite, Urine Neg (Neg); Protein, Urine Neg (Neg); Urobilinogen, Urine NORM (Normal)
[2024-05-17 16:27] LABS: Color, Urine Pale Yellow (P-Yellow)
== END 2024-05-17 17:01 ==
LOC: ER 14:41
PROVIDERS: Physician Assistant; Student in an Organized Health Care Education/Training Program
DX: R73.9 Hyperglycemia, unspecified (principal); Z79.84 Long term (current) use of oral hypoglycemic drugs; Z53.21 Procedure and treatment not carried out due to patient leaving prior to being seen by health care provider
CPT/HCPCS: 80053; 81003; 82803; 82947; 85025; 99281

== ENCOUNTER → 2025-07-06 | Outpatient (CLI) | payer OTHER ==
[2025-07-06 16:25] LABS: BASOPHILS ABSOLUTE AUTO 0.08 K/mm3 (0.00-0.23); BASOPHILS PERCENT AUTO 1 % (0-2); EOSINOPHILS ABSOLUTE AUTO 0.20 K/mm3 (0.00-0.68); EOSINOPHILS PERCENT AUTO 1 % (0-6); Hematocrit 49.8 % (37.0-53.0); Hemoglobin 17.0 g/dL (13.5-17.5); IMMATURE GRAN ABSOLUTE AUTO 0.09 K/mm3 (0.00-0.10); IMMATURE GRAN PERCENT AUTO 1 % (0-1); LYMPHOCYTES ABSOLUTE AUTO 4.58 K/mm3 (0.84-5.20); LYMPHOCYTES PERCENT AUTO 31 % (21-46); MONOCYTES ABSOLUTE AUTO 0.67 K/mm3 (0.16-1.47); MONOCYTES PERCENT AUTO 5 % (4-13); Mean Corpuscular HGB Conc 34.1 g/dL (31.5-36.5); Mean Corpuscular Volume 82 fL (80-100); NEUTROPHILS ABSOLUTE AUTO 9.00 K/mm3 (1.96-9.15); NEUTROPHILS PERCENT AUTO 62 % (41-73); NRBC ABSOLUTE 0.00 K/mm3 (0.00-0.02); NRBC Auto 0.0 /100 WBC (0.0-0.2); Platelet Count 331 K/mm3 (150-400); RDW Coefficient Variation 13.0 % (11.7-14.2); RDW Standard Deviation 38.6 fL (35.1-46.3)
[2025-07-06 17:52] LABS: Alanine Aminotransfer (ALT/SGP 34 U/L (12-78); Albumin, Blood 3.9 g/dL (3.4-5.0); Albumin/Globulin Ratio 1.0 (0.8-1.8); Anion Gap 10 mmol/L (3-11); Aspartate Aminotrans (AST/SGOT 19 U/L (12-37); Bilirubin, Total 0.5 mg/dL (0.1-1.0); Blood Urea Nitrogen 9 mg/dL (8-24); CHOL/HDL RATIO 6.1; CO2, Blood 27 mmol/L (21-32); Calcium, Blood 9.7 mg/dL (8.5-10.1); Chloride, Blood 99 mmol/L (98-108); Cholesterol 152 mg/dL (50-200); Creatinine, Blood 0.89 mg/dL (0.60-1.20); Globulin, Blood 4.0 g/dL (2.2-4.0); Glucose, Blood 168 mg/dL (70-99); HDL Cholesterol 25 mg/dL (>39); LDL/HDL RATIO 2.6; Low Density Lipoprotein Chol 64 mg/dL (0-110); Potassium, Blood 3.6 mmol/L (3.5-5.5); Sodium, Blood 132 mmol/L (136-145); Thyroid Stimulating Hormone 3.910 uIU/mL (0.360-4.800); Total Protein, Blood 7.9 g/dL (6.4-8.2); Triglycerides 315 mg/dL (30-160); Very Low Density Lipoprot Chol 63 mg/dL (6-32)
== END ==
LOC: LAB 15:50 → LAB SHORT 15:50
PROVIDERS: Student in an Organized Health Care Education/Training Program
DX: I10 Essential (primary) hypertension (principal); E11.9 Type 2 diabetes mellitus without complications; E66.09 Other obesity due to excess calories
CPT/HCPCS: 80053; 80061; 83036; 84443; 85025